=== PATIENT | female | born 1965 | race Caucasian/White ===

== ENCOUNTER 2021-06-06 07:41 | Day surgery (SDC) | payer OTHER ==
[~2021-06-06] VITALS: Ht 157.5 cm; Wt 58.0 kg
[2021-06-06] VITALS (179 sets, daily range): BP systolic 96–145; BP diastolic 50–108
--- NOTE | 2021-06-06 07:40 | NUR ---
PT BEING TRANSPORTED TO PROCEDURE WITH EXCHANGE MECHANIC AND MARCELA MCGEE VIA STRETCHER.
--- NOTE | 2021-06-06 07:43 | NUR ---
ARRIVED TO FLOOR AMBULATORY, ALERT AND ORIENTED X4 WITH S/O. ORIENTED TO ROOM. CONSENT TO TX DISCUSSED AND SIGNED ADMITTANCE PAPERWORK. ORIENTED TO POC, PT AGREEABLE. ALL BELONGINGS SENT WITH S/O. CHANGED INTO GOWN, COVID SWAB,IV AND LABS OBTAINED. PT RESTING COMFORTABLY WITH CALL LIGHT AND BED IN LOW POSITION.
[2021-06-06 09:11] LABS: HEMATOCRIT 40.6 % (37.0-47.0); IMMATURE GRANULOCYTES 0.1 % (0.0-5.0); MEAN CELL VOLUME 97.6 fL CALC (80.0-100.0); MEAN CORPUSCULAR HGB 31.3 pG CALC (26.0-32.0); NEUT# 3.84 thou/uL (2.00-7.15); RED BLOOD COUNT 4.16 mill/uL (4.20-5.60); RED CELL DISTRI WIDTH 13.3 % (11.5-15.5)
[2021-06-06 09:33] LABS: ALKALINE PHOSPHATASE 77 u/l (38-126); ANION GAP 13 (6-22 (CALC)); BILIRUBIN, TOTAL 0.3 mg/dL (0.0-1.4); BUN 8 mg/dL (7-17); BUN/CREATININE RATIO 10 (12-20 (CALC)); CARBON DIOXIDE 27 mmol/l (22-30); CHLORIDE 105 mmol/l (95-108); CREATININE 0.8 mg/dL (0.5-1.0); GFR > 60 ML/MIN (>=60 (CALC)); GFR FOR AFR.AMER. > 60 ML/MIN (>=60 (CALC)); SGOT/AST 24 u/l (14-36); SODIUM 141 mmol/l (137-146); TOTAL PROTEIN 6.9 g/dL (6.3-8.2)
--- NOTE | 2021-06-06 10:15 | NUR ---
dr abraham at bedside at this time.
[2021-06-06] MEDS ORDERED: CALCITRIOL0.25 MC1 PO (12:21)
[2021-06-06] MEDS ORDERED: EUTHYROX137 MCG PO (12:21)
[2021-06-06] MEDS ORDERED: PROTONIX40 M2 PO (12:21)
[2021-06-06] MEDS ORDERED: TOPROL XL25 MG PO (12:22)
--- NOTE | 2021-06-06 12:45 | NUR ---
Induction Note Patient to [facility] procedure room. Time out performed at 1245. Patient placed on monitors, Salty hugger, bilateral wrist restraints applied for ET tube protection. Versed 5mg given IV push at 1246 Tourniquet applied to right arm Lidocaine 100mg given at 1247 IV push followed by Rocoronium 10mg at 1248 IV push and held for 90 seconds. Propofol bolus of 100mg given at 1249 IV push. Succinylcholine 80mg given IV push at 1250. Smooth intubation with 7.5 ETT. Positive CO2. Positive Auscultation for air exchange. Patient placed on ventilator for spontaneous ventilation. Placed on Propofol IV drip at 1255. OG inserted. Positive air on auscultation. Positive gastric content. Stomach washed at this time. Naltrexone 75mg given via OG tube with Clonidine 0.2mg given via OG Tube. OG clamped for 45 minutes. Will monitor patient for symptoms of withdrawal and adjust propfol accordingly.
--- NOTE | 2021-06-06 14:00 | NUR ---
OG open note OG open at this time. Gastric content draining into drainage bag. OG to drain for 45 minutes. Propofol will be titrated down based on patient.
--- NOTE | 2021-06-06 15:00 | NUR ---
OG close note Stomach washed at this time. Naltrexone 50 mg with Clonidine 0.2 mg via OG tube. OG will be clamped for 45 minutes.
[2021-06-06] MEDS ORDERED: KLONOPIN2 MG PO (15:26)
--- NOTE | 2021-06-06 16:57 | NUR ---
PT STILL IN PROCEDURE AT THIS TIME.
--- NOTE | 2021-06-06 17:00 | NUR ---
OG close note Stomach washed at this time. Naltrexone 25 mg with Clonidine 0.2 mg via OG tube. OG will be clamped for 45 minutes.
--- NOTE | 2021-06-06 18:00 | NUR ---
OG close note Stomach washed at this time. Clonidine 0.2 mg via OG tube. OG will be clamped and prepare for extubation.
--- NOTE | 2021-06-06 18:35 | NUR ---
Extubation note Closing medications given Benadryl 50mg IV push, Decadron 10mg IV push,Magnesium 4 grams IV, Zofran 8mg IV push, Octreotide 100mcg SC. Stomach washed out prior to extubation. Suctioned gastric content. OG removed. Patient extubated. Propofol Discontinued. Wrist restraints removed. Satly hugger Removed. See ANR Moderate sedate recovery record for further notes and assessment.
--- NOTE | 2021-06-06 19:00 | NUR ---
patient to [facility] / [facility] via bed. report to maria de jesus
--- NOTE | 2021-06-06 19:05 | NUR ---
PT ARRIVED TO MED SURG FLOOR VIA STRETCHER; ACCOMPANIED BY STAFF. BEDSIDE REPORT FROM KARMEN YARBROUGH.
--- NOTE | 2021-06-06 20:10 | NUR ---
PT IN BED A&O X2, STILL DROWSY FROM PROCEDURE. EVEN AND UNLABORED RESPIRATIONS; CLEAR LUNG SOUNDS UPON AUSCULTATION. O2 @ 2L VIA NASAL CANNULA IN PLACE. ACTIVE BOWEL SOUNDS X4 QUADRANTS. PT SEVERELY AGITATED; ADMINISTERED ATIVAN PER EMAR. PT C/O NAUSEA; ADMINISTERED PHENERGAN PER EMAR. BED ALARM AND SAFETY PRECAUTIONS IN PLACE. CALL LIGHT WITHIN REACH.
--- NOTE | 2021-06-06 20:50 | NUR ---
PT C/O NAUSEA; ADMINISTERED ZOFRAN PER EMAR. BED ALARM AND SAFETY PRECAUTIONS IN PLACE. CALL LIGHT WITHIN REACH.
--- NOTE | 2021-06-07 00:15 | NUR ---
PT IN BED, RESTLESS; PT UNABLE TO FIND A COMFORTABLE POSITION. PT DENIES PAIN AT THE MOMENT. BED ALARM AND SAFETY PRECAUTIONS IN PLACE. CALL LIGHT WITHIN REACH.
[2021-06-07 02:47] VITALS: BP 86/44
[2021-06-07 03:00] VITALS: BP 98/61
[2021-06-07 03:30] VITALS: BP 102/54
--- NOTE | 2021-06-07 04:20 | NUR ---
PT SLEEPING. NO DISTRESS OR PAIN NOTED. IV SITES HEALTHY AND PATENT. BED ALARM AND SAFETY PRECAUTIONS IN PLACE. CALL LIGHT WITHIN REACH.
--- NOTE | 2021-06-07 05:15 | NUR ---
PT SLEEPING. PT AWAKEN BY CERTIFIED MEDICAL TECHNICIAN TO DO BLOOD DRAW. PT REFUSED BLOOD DRAW. BED ALARM AND SAFETY PRECAUTIONS IN PLACE.
[2021-06-07 07:32] VITALS: BP 102/49
--- NOTE | 2021-06-07 07:32 | NUR ---
PT RESTING IN SEMI FOWLERS POSITION. PT A/OX3 BUT STILL DROWSY. ASSESMENT AND VITALS COMPLETED. RESPIRATION EVEN AND UNLABORED ON ROOM AIR. LUNG SOUNDS CLEAR. HEART RHYTHM NORMAL. BOWEL SOUNDS ACTIVE. #20G RAC AND #18G LH FLUSHED, SITE PATENT. SKIN INTACT . PT C/O NAUSEA, PT MEDICATED PER EMAR. PT DENIES OF ANY ADDITIONAL DISCOMFORT. ALL SAFETY PRECAUTIONS ARE IN PLACE WITH CALL LIGHT IN REACH AND BED ALARM ACTIVE.PT INSTRUCTED TO CALL FOR ASSISTANCE . PT VERBALIZED UNDERSTANDING. WILL CONTINUE TO MONITOR.
[2021-06-07 08:17] LABS: HEMOGLOBIN 12.8 g/dl (12.0-16.0); IMMATURE GRANULOCYTES 0.2 % (0.0-5.0); MEAN CORPUSCULAR HGB 31.7 pG CALC (26.0-32.0); MEAN CORPUSCULAR HGB CONC 34.6 g/dL CAL (32.0-36.0); NEUT# 10.52 thou/uL (2.00-7.15); RED BLOOD COUNT 4.04 mill/uL (4.20-5.60)
[2021-06-07 08:18] LABS: ALBUMIN 3.7 g/dL (3.2-5.0); ALKALINE PHOSPHATASE 72 u/l (38-126); ANION GAP 10 (6-22 (CALC)); BILIRUBIN, TOTAL 0.3 mg/dL (0.0-1.4); BUN 12 mg/dL (7-17); BUN/CREATININE RATIO 17 (12-20 (CALC)); CARBON DIOXIDE 23 mmol/l (22-30); CHLORIDE 107 mmol/l (95-108); CREATININE 0.7 mg/dL (0.5-1.0); GFR > 60 ML/MIN (>=60 (CALC)); GFR FOR AFR.AMER. > 60 ML/MIN (>=60 (CALC)); MAGNESIUM 2.1 mg/dL (1.6-2.3); SGOT/AST 23 u/l (14-36); SODIUM 137 mmol/l (137-146); TOTAL PROTEIN 6.6 g/dL (6.3-8.2)
[2021-06-07 08:19] LABS: POTASSIUM 3.1 mmol/l (3.5-5.1)
[2021-06-07 08:27] LABS: MEAN CELL VOLUME 91.6 fL CALC (80.0-100.0)
--- NOTE | 2021-06-07 10:30 | NUR ---
DR GALVEZ AT BEDSIDE
[2021-06-07 11:09] VITALS: BP 93/48
--- NOTE | 2021-06-07 12:18 | NUR ---
PT RESTING IN LOW FOLWERS POSITION. RESPIRATIONS EVEN AND UNLABORED ON ROOM AIR. PT DENIES OF ANY DISCOMFORTS. SCHEDULED MEDICATIONS ADMINISTERED. PT TOLERATED WELL. CANBERRY JUICE PROVIDED. PT DENIES OF ANY ADDITIONAL NEEDS AT THIS TIME. ALL SAFTEY PRCAUTIONS ARE IN PLACE WITH CALL LIGHT IN REACH. BED ALARM ACTIVE. WILL CONTINUE TO MONITOR
--- NOTE | 2021-06-07 12:58 | NUR ---
PT EDUCATED ON DC INSTRUCTIONS. PT VERBALIZED UNDERSTANDING. IV IN RH REMOVED WITH CATH STILL INTACT. PT ASSSITED WITH GETTING DRESSED. AWAITING DC.
--- NOTE | 2021-06-07 15:02 | NUR ---
PT MEDICATED ON DC INSTRUCTIONS. PT VERBLAIZED UNDERSTANDING. FEMORAL LINE TO BE REMOVED BY RN.
[2021-06-07 15:56] VITALS: BP 105/54
--- NOTE | 2021-06-07 16:30 | NUR ---
Discharge instructions given. Patient verbalizes understanding of same. Discharged in stable condition via Wheelchair to Home with staff. All belongings sent with pt. PT DC HOME VIA WHEELCHAIR ACCOMPAINED BY [facility] STAFF WITH ALL DC INSTRUCTIONS AND PERSONAL BELONGINGS
== END 2021-06-07 16:30 | disposition home or self-care (01) | DRG 897 ==
LOC: MS2 07:41 → ANR 07:41
PROVIDERS: ATTEND Anesthesiology
DX: F11.20 Opioid dependence, uncomplicated (principal)
CPT/HCPCS: J2060; J2354